=== PATIENT | female | born 1995 | race Caucasian/White ===

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

== ENCOUNTER 2017-07-12 15:04 | Emergency (ER) | payer SELFPAY, OTHER ==
[2017-07-12 15:42] LABS: URINE HCG POC HCG NEGATIVE (Negative)
[2017-07-12 15:45] LABS: BILIRUBIN,URINE NEGATIVE (NEG); CLARITY,URINE CLEAR; GLUCOSE,URINE NEGATIVE (NEG); NITRITE,URINE NEGATIVE (NEG); PROTEIN,URINE NEGATIVE (NEG-TRACE); UROBILINOGEN,URINE 0.2 mg/dL (0.2 mg/dL)
[2017-07-12 15:52] LABS: COLOR,URINE STRAW
[2017-07-12] MEDS: ONDANSETRON PF 4 MG/2 ML VIAL. IV (15:55)
[2017-07-12 16:02] LABS: ADD MAN DIFF? NO
[2017-07-12 16:03] LABS: AGAP ISTAT 17 mmol/L (6-14); BASO % 0 % (0-3); BUN ISTAT 7 mg/dL (8-26); CHLORIDE ISTAT 103 mmol/L (98-110); CREATININE ISTAT 0.8 mg/dL (0.5-1.4); EOS # 0.1 x10^3/uL (0.0-0.7); EOS % 1 % (0-3); GLUCOSE ISTAT 93 mg/dL (70-99); HEMATOCRIT 33.9 % (36.0-47.0); HEMATOCRIT ISTAT 36 % (36-40); HEMOGLOBIN 10.6 g/dL (12.0-15.5); HEMOGLOBIN ISTAT 12.2 g/dL (12-15); ION CA ISTAT 1.18 mmol/L (1.13-1.32); LYMPH # 2.9 x10^3/uL (1.0-4.8); LYMPH % 26 % (24-48); MEAN CORPUSCULAR HEMOGLOBIN 22 pg (25-35); MEAN CORPUSCULAR HGB CONC 31 g/dL (31-37); MEAN CORPUSCULAR VOLUME 72 fL (79-100); MONO # 0.7 x10^3/uL (0.0-1.1); MONO % 7 % (0-9); NEUT # 7.4 x10^3uL (1.8-7.7); NEUT % 66 % (31-73); PLATELET COUNT 431 x10^3/uL (140-400); POTASSIUM ISTAT 3.5 mmol/L (3.5-5.0); RED BLOOD COUNT 4.73 x10^6/uL (3.50-5.40); RED CELL DISTRIBUTION WIDTH 17.8 % (11.5-14.5); SODIUM ISTAT 141 mmol/L (135-145); TOT CO2 ISTAT 25 mmol/L (23-32); WHITE BLOOD COUNT 11.2 x10^3/uL (4.0-11.0)
[2017-07-12] MEDS ORDERED: IOHEXOL 300 MG/ML 100ML VIAL. (16:06)
[2017-07-12 16:11] LABS: BACTERIA,URINE FEW /HPF (0-FEW); RBC,URINE 0 /HPF (0-2); SQUAMOUS EPITHELIAL CELL,UR FEW /LPF; TRICHOMONAS,URINE PRESENT
[2017-07-12 16:12] LABS: ANION GAP 12 (6-14); BLOOD UREA NITROGEN 8 mg/dL (7-20); BUN/CREATININE RATIO 9 (6-20); CARBON DIOXIDE 26 mmol/L (21-32); CHLORIDE 103 mmol/L (98-107); CREATININE 0.9 mg/dL (0.6-1.0); GFR 79.8; GLUCOSE 94 mg/dL (70-99); POTASSIUM 3.6 mmol/L (3.5-5.1); SODIUM 141 mmol/L (136-145)
[2017-07-12 16:18] LABS: ALBUMIN 3.7 g/dL (3.4-5.0); ALBUMIN/GLOBULIN RATIO 0.8 (1.0-1.7); ALK PHOS 124 U/L (46-116); ALT (SGPT) 25 U/L (14-59); AST (SGOT) 19 U/L (15-37); TOTAL BILIRUBIN 0.2 mg/dL (0.2-1.0); TOTAL PROTEIN 8.6 g/dL (6.4-8.2)
[2017-07-12] MEDS: IOHEXOL 300 MG/ML 100ML VIAL. IV (16:38)
[2017-07-12 16:45] LABS: ANISOCYTOSIS SLIGHT; HYPOCHROMIA MOD; MICROCYTOSIS MARKED; PLT ESTIMATE ADEQUATE (ADEQUATE); POLYCHROMASIA SLIGHT
[2017-07-12] MEDS: metroNIDAZOLE 500 MG TABLET PO (17:55)
[2017-07-12] MEDS: AZITHROMYCIN 250 MG TABLET. PO (17:56)
== END 2017-07-12 17:50 | disposition home or self-care (01) ==
LOC: ER 15:04
DX: S06.0X1A Concussion with loss of consciousness of 30 minutes or less, initial encounter (principal); S30.810A Abrasion of lower back and pelvis, initial encounter; S19.9XXA Unspecified injury of neck, initial encounter; N30.00 Acute cystitis without hematuria; M25.571 Pain in right ankle and joints of right foot; R07.81 Pleurodynia; R07.89 Other chest pain; A59.9 Trichomoniasis, unspecified; Z88.0 Allergy status to penicillin; Z91.030 Bee allergy status; V43.52XA Car driver injured in collision with other type car in traffic accident, initial encounter; Y93.I9 Activity, other involving external motion; Y92.410 Unspecified street and highway as the place of occurrence of the external cause; Y99.8 Other external cause status
CPT/HCPCS: 36415; 70450; 70486; 71260; 72125; 73610; 74177; 80047; 80053; 81001; 81025; 85025; 87086; 96374; 99285-25; J2405; Q0144; Q9967